=== PATIENT | male | born 1975 | race Caucasian/White ===

== ENCOUNTER 2020-11-10 16:37 | Observation (INO) ==
[2020-11-10] MEDS ORDERED: GI Cocktail 40 ML EACH PO ONE (17:20)
[2020-11-10] MEDS ORDERED: 0.9 % Sodium Chloride 1,000 ML IV ONE (17:20)
[2020-11-10] MEDS ORDERED: Ondansetron 4 MG/2 ML VIAL IVP ONE (17:20)
[2020-11-10 17:30] LABS: Basophils % 0.5 %; Eosinophils # 0.1 K/mcL (0.0-0.6); Eosinophils % 1.5 %; Hematocrit 39.5 % (37.5-50.1); Hemoglobin 13.2 g/dL (12.9-16.9); Immature Granulocytes % 0.3 % (0-4); Lymphocytes # 1.4 K/mcL (0.6-4.6); Lymphocytes % 21.5 %; Mean Corpuscular HGB Conc 33.4 g/dL (31.6-35.5); Mean Corpuscular Hemoglobin 28.4 pg (28.0-33.3); Mean Corpuscular Volume 85.1 fL (83.0-100.0); Monocytes # 0.4 K/mcL (0.0-1.3); Monocytes % 6.8 %; Neutrophils # 4.5 K/mcL (1.6-8.9); Platelet Count 381 K/mcL (140-400); Red Blood Count 4.64 M/mcL (4.19-5.50); Red Cell Distribution Width 13.2 % (11.5-14.5); Segmented Neutrophils % 69.4 %; White Blood Count 6.5 K/mcL (4.3-11.1)
[2020-11-10 17:37] LABS: INR 2.5; Prothrombin Time 28.6 Seconds (9.4-12.1)
[2020-11-10 17:46] LABS: Alanine Aminotransferase 30 Units/L (7-52); Albumin 4.1 g/dL (3.5-5.7); Albumin/Globulin Ratio 1.6 (1.1-2.2); Alkaline Phosphatase 53 Units/L (34-104); Amylase 24 Units/L (29-103); Aspartate Amino Transferase 22 Units/L (13-39); BUN/Creatinine Ratio 6 (6-26); Bilirubin,Total 0.6 mg/dL (0.3-1.0); Blood Urea Nitrogen 8 mg/dL (6-20); Calcium 9.2 mg/dL (8.6-10.3); Carbon Dioxide 25 mEq/L (23-29); Chloride 103 mEq/L (98-107); Globulin 2.6 g/dL (2.4-3.5); Glucose 123 mg/dL (70-105); Osmolality,Calculated 282 (280-300); Potassium 3.7 mEq/L (3.5-5.1); Sodium 136 mEq/L (136-145); Total Protein 6.7 g/dL (6.4-8.9); eGFR For African Americans > 60 (> 60); eGFR For Non-African Americans 59 (> 60)
[2020-11-10 17:47] LABS: Lipase 36 Units/L (11-82)
[2020-11-10 17:50] LABS: Troponin I < 0.03 ng/mL (< 0.04)
[2020-11-10] MEDS ORDERED: Morphine Sulfate 2 MG/ML SYRINGE IVP ONE (18:26)
[2020-11-10] MEDS ORDERED: Naloxone 0.4 MG/ML INJ IVP PRN (18:52)
[2020-11-10] MEDS ORDERED: Ondansetron 4 MG/2 ML VIAL IVP PRN (18:52)
[2020-11-10] MEDS ORDERED: *HR* Dextrose 50 % in Water (Vial) 50 ML VIAL IVP PRN (18:55)
[2020-11-10] MEDS ORDERED: Dextrose Gel 15 GM/37.5 ML TUBE PO PRN ×2 (18:55)
[2020-11-10] MEDS ORDERED: D5% in Water 1,000 ML IVC PRN (18:55)
[2020-11-10 18:58] LABS: Bilirubin,Urine Negative (Negative); Blood,Urine Negative (Negative); Clarity,Urine Clear (Clear); Color,Urine Yellow (Yellow); Glucose,Urine (UA) Normal (Normal); Ketones,Urine Negative (Negative); Leukocyte Esterase,Urine Negative (Negative); Nitrite,Urine Negative (Negative); PH,Urine 7.5 pH Units (5.0-8.0); Protein,Urine Negative (Neg-Trace); Specific Gravity,Urine 1.015 (1.010-1.025); Urobilinogen,Urine Normal (Normal)
[2020-11-10 20:12] LABS: Alanine Aminotransferase 27 Units/L (7-52); Albumin 3.9 g/dL (3.5-5.7); Albumin/Globulin Ratio 1.6 (1.1-2.2); Alkaline Phosphatase 50 Units/L (34-104); Aspartate Amino Transferase 19 Units/L (13-39); BUN/Creatinine Ratio 5 (6-26); Bilirubin,Total 0.6 mg/dL (0.3-1.0); Blood Urea Nitrogen 7 mg/dL (6-20); Calcium 8.8 mg/dL (8.6-10.3); Carbon Dioxide 26 mEq/L (23-29); Chloride 106 mEq/L (98-107); Globulin 2.4 g/dL (2.4-3.5); Glucose 106 mg/dL (70-105); Osmolality,Calculated 288 (280-300); Potassium 3.9 mEq/L (3.5-5.1); Sodium 140 mEq/L (136-145); Total Protein 6.3 g/dL (6.4-8.9); eGFR For African Americans > 60 (> 60); eGFR For Non-African Americans > 60 (> 60)
[2020-11-10] MEDS: Baclofen 10 MG TABLET PO SCH (20:52)
[2020-11-10] MEDS: 0.9 % Sodium Chloride 1,000 ML IVC SCH (20:53)
[2020-11-10] MEDS: *HR* OxyCODONE/APAP 5/325 TABLET PO PRN (20:53)
[2020-11-10] MEDS: Morphine Sulfate 2 MG/ML SYRINGE IVP PRN (22:41)
[2020-11-11] MEDS: Morphine Sulfate 2 MG/ML SYRINGE IVP PRN ×4 (02:42→23:04)
[2020-11-11] MEDS: *HR* OxyCODONE/APAP 5/325 TABLET PO PRN ×3 (05:09→22:11)
[2020-11-11] MEDS: 0.9 % Sodium Chloride 1,000 ML IVC SCH ×3 (05:09→22:22)
[2020-11-11 06:28] LABS: Basophils % 0.7 %; Eosinophils # 0.1 K/mcL (0.0-0.6); Hematocrit 38.7 % (37.5-50.1); Hemoglobin 12.7 g/dL (12.9-16.9); Immature Granulocytes % 0.5 % (0-4); Lymphocytes # 1.6 K/mcL (0.6-4.6); Lymphocytes % 27.1 %; Mean Corpuscular HGB Conc 32.8 g/dL (31.6-35.5); Mean Corpuscular Hemoglobin 28.7 pg (28.0-33.3); Mean Corpuscular Volume 87.6 fL (83.0-100.0); Mean Platelet Volume 8.4 fL (9.4-12.4); Monocytes # 0.4 K/mcL (0.0-1.3); Neutrophils # 3.7 K/mcL (1.6-8.9); Platelet Count 383 K/mcL (140-400); Red Blood Count 4.42 M/mcL (4.19-5.50); Red Cell Distribution Width 13.3 % (11.5-14.5); Segmented Neutrophils % 62.7 %; White Blood Count 5.9 K/mcL (4.3-11.1)
[2020-11-11 07:29] LABS: Chol/HDL Ratio 3.5 (0-4.9); Magnesium 2.2 mg/dL (1.6-2.6)
[2020-11-11] MEDS: Fenofibrate 54 MG TABLET PO SCH (09:22)
[2020-11-11] MEDS: *HR* Rivaroxaban 15 MG TABLET PO SCH ×2 (09:23→22:11)
[2020-11-11] MEDS: BuPROPion XL (24 HR) 150 MG TABLET PO SCH (09:23)
[2020-11-11] MEDS: Ondansetron 4 MG/2 ML VIAL IVP PRN ×2 (09:23→23:03)
[2020-11-11] MEDS: Baclofen 10 MG TABLET PO SCH ×3 (09:23→22:11)
[2020-11-11] MEDS: lisinopriL 20 MG TABLET PO SCH (09:23)
[2020-11-11] MEDS: Sucralfate 1 GM TABLET PO SCH ×2 (16:54→22:10)
[2020-11-11] MEDS: Pantoprazole 40 MG VIAL IVP SCH (16:54)
[2020-11-12] MEDS: Pantoprazole 40 MG VIAL IVP SCH ×2 (05:18→16:28)
[2020-11-12] MEDS: Morphine Sulfate 2 MG/ML SYRINGE IVP PRN ×2 (05:21→09:40)
[2020-11-12] MEDS: Sucralfate 1 GM TABLET PO SCH ×4 (06:31→20:06)
[2020-11-12 06:34] LABS: Basophils % 0.6 %; Eosinophils # 0.2 K/mcL (0.0-0.6); Eosinophils % 3.3 %; Hematocrit 37.5 % (37.5-50.1); Hemoglobin 12.2 g/dL (12.9-16.9); Immature Granulocytes % 0.6 % (0-4); Lymphocytes # 1.3 K/mcL (0.6-4.6); Mean Corpuscular HGB Conc 32.5 g/dL (31.6-35.5); Mean Corpuscular Hemoglobin 28.7 pg (28.0-33.3); Mean Corpuscular Volume 88.2 fL (83.0-100.0); Mean Platelet Volume 8.4 fL (9.4-12.4); Monocytes # 0.4 K/mcL (0.0-1.3); Monocytes % 7.6 %; Neutrophils # 3.5 K/mcL (1.6-8.9); Platelet Count 344 K/mcL (140-400); Red Blood Count 4.25 M/mcL (4.19-5.50); Segmented Neutrophils % 63.9 %; White Blood Count 5.4 K/mcL (4.3-11.1)
[2020-11-12 07:04] LABS: BUN/Creatinine Ratio 7 (6-26); Blood Urea Nitrogen 8 mg/dL (6-20); Carbon Dioxide 25 mEq/L (23-29); Chloride 104 mEq/L (98-107); Glucose 77 mg/dL (70-105); Lipase 27 Units/L (11-82); Osmolality,Calculated 283 (280-300); Potassium 3.7 mEq/L (3.5-5.1); Sodium 138 mEq/L (136-145); eGFR For African Americans > 60 (> 60); eGFR For Non-African Americans > 60 (> 60)
[2020-11-12] MEDS: Baclofen 10 MG TABLET PO SCH ×3 (08:14→20:06)
[2020-11-12] MEDS: lisinopriL 20 MG TABLET PO SCH (08:14)
[2020-11-12] MEDS: Fenofibrate 54 MG TABLET PO SCH (08:15)
[2020-11-12] MEDS: BuPROPion XL (24 HR) 150 MG TABLET PO SCH (08:15)
[2020-11-12] MEDS: *HR* Rivaroxaban 15 MG TABLET PO SCH ×2 (08:16→20:10)
[2020-11-12] MEDS: 0.9 % Sodium Chloride 1,000 ML IVC SCH ×2 (08:16→18:28)
[2020-11-12] MEDS: *HR* OxyCODONE/APAP 5/325 TABLET PO PRN ×2 (12:42→20:10)
[2020-11-12] MEDS: Ondansetron 4 MG/2 ML VIAL IVP PRN (12:42)
[2020-11-13] MEDS: *HR* OxyCODONE/APAP 5/325 TABLET PO PRN ×3 (01:46→13:39)
[2020-11-13] MEDS: 0.9 % Sodium Chloride 1,000 ML IVC SCH ×2 (04:29→13:39)
[2020-11-13] MEDS: Pantoprazole 40 MG VIAL IVP SCH ×2 (04:31→16:28)
[2020-11-13 07:36] LABS: Basophils % 0.4 %; Eosinophils # 0.2 K/mcL (0.0-0.6); Eosinophils % 3.5 %; Hematocrit 35.4 % (37.5-50.1); Hemoglobin 11.7 g/dL (12.9-16.9); Immature Granulocytes % 0.4 % (0-4); Lymphocytes # 1.4 K/mcL (0.6-4.6); Lymphocytes % 31.3 %; Mean Corpuscular HGB Conc 33.1 g/dL (31.6-35.5); Mean Corpuscular Hemoglobin 28.9 pg (28.0-33.3); Mean Corpuscular Volume 87.4 fL (83.0-100.0); Mean Platelet Volume 8.2 fL (9.4-12.4); Monocytes # 0.4 K/mcL (0.0-1.3); Monocytes % 8.8 %; Neutrophils # 2.5 K/mcL (1.6-8.9); Platelet Count 323 K/mcL (140-400); Red Blood Count 4.05 M/mcL (4.19-5.50); Segmented Neutrophils % 55.6 %; White Blood Count 4.5 K/mcL (4.3-11.1)
[2020-11-13 07:51] VITALS: BP 119/69
[2020-11-13] MEDS: lisinopriL 20 MG TABLET PO SCH (08:35)
[2020-11-13] MEDS: BuPROPion XL (24 HR) 150 MG TABLET PO SCH (08:35)
[2020-11-13] MEDS: Fenofibrate 54 MG TABLET PO SCH (08:35)
[2020-11-13] MEDS: *HR* Rivaroxaban 15 MG TABLET PO SCH (08:35)
[2020-11-13] MEDS: Sucralfate 1 GM TABLET PO SCH ×3 (08:35→16:28)
[2020-11-13] MEDS: Baclofen 10 MG TABLET PO SCH ×2 (08:36→13:39)
[2020-11-13 09:57] LABS: Alanine Aminotransferase 17 Units/L (7-52); Albumin 3.5 g/dL (3.5-5.7); Albumin/Globulin Ratio 1.6 (1.1-2.2); Alkaline Phosphatase 38 Units/L (34-104); Aspartate Amino Transferase 14 Units/L (13-39); BUN/Creatinine Ratio 4 (6-26); Bilirubin,Total 0.5 mg/dL (0.3-1.0); Blood Urea Nitrogen 5 mg/dL (6-20); Calcium 8.4 mg/dL (8.6-10.3); Carbon Dioxide 29 mEq/L (23-29); Chloride 107 mEq/L (98-107); Globulin 2.2 g/dL (2.4-3.5); Glucose 97 mg/dL (70-105); Lipase 34 Units/L (11-82); Osmolality,Calculated 291 (280-300); Potassium 3.9 mEq/L (3.5-5.1); Sodium 142 mEq/L (136-145); Total Protein 5.7 g/dL (6.4-8.9); eGFR For African Americans > 60 (> 60); eGFR For Non-African Americans > 60 (> 60)
[2020-11-13] MEDS: Ondansetron 4 MG/2 ML VIAL IVP PRN (17:20)
[2020-11-13] MEDS ORDERED: *HR* OxyCODONE/APAP 5/325 TABLET PO ONE (17:21)
== END 2020-11-13 18:31 | disposition home or self-care (01) ==
LOC: INPPIK 16:37 → EMEROOPIK 16:37 → INPPIK 19:38
PROVIDERS: ADMIT Family Medicine; ATTEND Family Medicine